=== PATIENT | female | born 1985 | race Caucasian/White ===

== ENCOUNTER 2016-07-31 08:49 | Emergency (ER) | payer OTHER ==
--- NOTE | 2016-07-31 09:36 | ER Document Report ---
ED General - General Chief Complaint: Sore Throat Stated Complaint: THROAT PAIN Time seen by provider: 09:31 Mode of Arrival: Ambulatory Information source: Patient Notes: This is a 30-year-old female with a history of hypertension who presents to the emergency room with a sore throat for 3 days. Patient denies fever, chills. She does have pain when she swallows. She is able to swallow. No drooling. No change in her voice. Past medical history: Hypertension Medicines: Metoprolol, control implant Allergies: Penicillin (hives) Social: Positive for cigarettes (5 cigarettes a day). TRAVEL OUTSIDE OF THE [place] IN LAST 30 DAYS: No - HPI Onset: Last week Onset/Duration: Gradual Quality of pain: Dull Severity: Moderate Pain Level: 3 Associated symptoms: denies: Chills, Fever Exacerbated by: Denies Relieved by: Denies Similar symptoms previously: No Recently seen / treated by doctor: No - Related Data Allergies/Adverse Reactions: latex [Latex] Allergy (Mild, Verified 07/31/16 08:57) ITCHY RASH ON HANDS FROM GLOVES aloe vera [From Aloe Vera with Vitamin E] Allergy (Verified 07/31/16 08:57) Hives Penicillins Allergy (Verified 07/31/16 08:57) Hives Vitamin E [From Aloe Vera with Vitamin E] Allergy (Verified 07/31/16 08:57) Hives Past Medical History - General Information source: Patient - Social History Smoking Status: Current Every Day Smoker Cigarette use (# per day): Yes Chew tobacco use (# tins/day): No Frequency of alcohol use: None Drug Abuse: None Lives with: Family Family History: Reviewed & Not Pertinent Patient has suicidal ideation: No Patient has homicidal ideation: No - Past Medical History Cardiac Medical History: Denies: Hx Coronary Artery Disease, Hx Heart Attack, Hx Hypertension Pulmonary Medical History: Denies: Hx Asthma, Hx Bronchitis, Hx COPD, Hx Pneumonia Neurological Medical History: Denies: Hx Cerebrovascular Accident, Hx Seizures Renal/ Medical History: Denies: Hx Peritoneal Dialysis GI Medical History: Denies: Hx Hepatitis, Hx Hiatal Hernia, Hx Ulcer Musculoskeltal Medical History: Denies Hx Arthritis Infectious Medical History: Denies: Hx Hepatitis Surgical Hx: Negative Past Surgical History: Denies: Hx Hysterectomy, Hx Mastectomy, Hx Open Heart Surgery, Hx Pacemaker - Immunizations Hx Diphtheria, Pertussis, Tetanus Vaccination: No Review of Systems - Review of Systems Constitutional: denies: Chills, Fever EENT: See HPI Cardiovascular: No symptoms reported Respiratory: No symptoms reported Gastrointestinal: No symptoms reported Genitourinary: No symptoms reported Female Genitourinary: No symptoms reported Musculoskeletal: No symptoms reported Skin: No symptoms reported Hematologic/Lymphatic: No symptoms reported Neurological/Psychological: No symptoms reported Physical Exam - Vital signs Vitals: Temp Pulse Resp BP Pulse Ox 98.4 F 53 L 16 152/111 H 96 07/31/16 08:54 07/31/16 08:54 07/31/16 08:54 07/31/16 08:54 07/31/16 08:54 Notes: Physical exam: GENERAL: HEAD: Atraumatic, normocephalic. EYES: Pupils equal round and reactive to light, extraocular movements intact, sclera anicteric, conjunctiva are normal. ENT: TMs normal, nares patent, oropharynx reveals bilateral erythematous tonsils with exudates. There is no uvular deviation. There is no peritonsillar fullness. There is no stridor or change in voice. There is no drooling. NECK: Normal range of motion, supple without any tenderness or swelling in the submandibular or submental spaces. LUNGS: Breath sounds clear to auscultation bilaterally and equal. No wheezes rales or rhonchi. HEART: Regular rate and rhythm without murmurs, rubs or gallops. ABDOMEN: Soft, normoactive bowel sounds. No tenderness to palpation. No guarding, no rebound. No masses appreciated. EXTREMITIES: Normal range of motion, no pitting or edema. No clubbing or cyanosis. NEUROLOGICAL: Cranial nerves II through XII grossly intact. Normal speech, normal gait. PSYCH: Normal mood, normal affect. SKIN: Warm, Dry, normal turgor, no rashes or lesions noted. Course - Re-evaluation Re-evalutation: 07/31/16 09:34 The patient is hypertensive today. She did not take her metoprolol. On review of her vital signs, her blood pressure is 152/111 and her pulse is 53. Her blood pressure is metoprolol. I've discussed with her that she may require a second agent or change to a different medicine. Her heart rate is rather slow, and yet her blood pressure is rather high. Increasing the metoprolol is limited based upon the heart rate of 53. Additionally, I've discussed with her why she should not smoke. She is on control implant and I discussed that the risks or DVT, PE and that a PE could be life-threatening. She understands this risk and said she would try and stop. As far as her primary care doctor, it had previously been Dr. Dave his left town and she does not have a primary care doctor at this time. I will refer her to someone new. - Vital Signs Vital signs: Temp Pulse Resp BP Pulse Ox 97.7 F 54 L 16 146/100 H 98 07/31/16 10:31 07/31/16 10:31 07/31/16 10:31 07/31/16 10:31 07/31/16 10:31 Discharge - Discharge Clinical Impression: tonsillitis, hypertension Condition: Stable Disposition: HOME, SELF-CARE Instructions: Strep Throat ([facility]) Additional Instructions: Recommendations: You can take Advil for pain. Take the clindamycin antibiotic as prescribed. As we discussed, I would like you to attempt to stop smoking completely. Return to the emergency room for any worsening sore throat, difficulty swallowing or concerns he getting worse. Prescriptions: Clindamycin HCl [Cleocin 300 mg Capsule] 300 mg PO Q6 #28 capsule Forms: Return to Work
[2016-07-31 10:34] VITALS: BP 146/100
== END 2016-07-31 10:38 | disposition home or self-care (01) ==
LOC: ER 08:49
DX: J03.90 Acute tonsillitis, unspecified (principal); I10 Essential (primary) hypertension; J02.9 Acute pharyngitis, unspecified; F17.210 Nicotine dependence, cigarettes, uncomplicated
CPT/HCPCS: 87880; 99283

== ENCOUNTER 2018-10-25 14:36 | Day surgery (SDC) | payer OTHER ==
[~2018-10-25 14:36] MED LIST: BUPIVACAINE HCL 0.25 % INJ/PF (2.5 MG/1 ML) 30 ML VIAL ONE; DEXAMETHASONE SOD PHOSPHATE INJ 4 MG/1 ML VIAL ONE; FENTANYL CITRATE INJ/PF 100 MCG/2 ML AMPUL ONE; HYDROMORPHONE HCL INJ/PF 2 MG/ML AMPULE ONE; METRONIDAZOLE 500 MG/NS RTU 500 MG/100 ML RTUPB IV ONE; METRONIDAZOLE 500 MG/NS RTU 500 MG/100 ML RTUPB IV PRN; MIDAZOLAM 2 MG/2 ML INJ ONE; ONDANSETRON HCL INJ/PF 4 MG/2 ML SDV ONE; PROPOFOL INJ 200 MG/20 ML VIAL IV ONE; ROCURONIUM BROMIDE INJ 50 MG/5 ML VIAL IV ONE; SUCCINYLCHOLINE CHLORIDE INJ 200 MG/10 ML VIAL ONE
[2018-10-25 15:28] LABS: ABSOLUTE BASOPHILS # (AUTO) 0.1 10^3/uL (0.0-0.2); ABSOLUTE EOSINOPHILS # (AUTO) 0.4 10^3/uL (0.0-0.6); ABSOLUTE LYMPHOCYTES (AUTO) 2.2 10^3/uL (0.5-4.7); ABSOLUTE MONOCYTES (AUTO) 0.8 10^3/uL (0.1-1.4); ABSOLUTE NEUT (AUTO) 11.3 10^3/uL (1.7-8.2); BASOPHILS % (AUTO) 0.8 % (0-2); EOSINOPHILS % (AUTO) 2.9 % (0-6); HEMATOCRIT 44.4 % (36.0-47.0); HEMOGLOBIN 15.5 g/dL (12.0-15.5); LYMPHOCYTES % (AUTO) 14.8 % (13-45); MEAN CORPUSCULAR HEMOGLOBIN 31.6 pg (27.0-33.4); MEAN CORPUSCULAR HGB CONC 34.8 g/dL (32.0-36.0); MEAN CORPUSCULAR VOLUME 91 fl (80-97); MONOCYTES % (AUTO) 5.3 % (3-13); PLATELET COUNT 347 10^3/uL (150-450); RED BLOOD COUNT 4.89 10^6/uL (3.72-5.28); RED CELL DISTRIBUTION WIDTH 12.7 % (11.5-14.0); SEGMENTED NEUTROPHILS % (AUTO) 76.2 % (42-78); TOTAL CELLS COUNTED % (AUTO) 100 %; WHITE BLOOD COUNT 14.8 10^3/uL (4.0-10.5)
[2018-10-25] MEDS ORDERED: MORPHINE SULFATE 10 MG/ML INJ IV PRN (16:08)
[2018-10-25] MEDS ORDERED: MEPERIDINE HCL/PF INJ 25 MG/1 ML DISP.SYRIN IV PRN (16:08)
[2018-10-25] MEDS ORDERED: PROMETHAZINE HCL INJ 25 MG/1 ML VIAL IV PRN (16:08)
[2018-10-25] MEDS ORDERED: OXYCODONE-ACETAMINOPHEN 5-325 MG TABLET PO PRN ×3 (16:08→16:26)
[2018-10-25] MEDS ORDERED: FENTANYL CITRATE INJ/PF 100 MCG/2 ML AMPUL IV PRN ×3 (16:08)
[2018-10-25] MEDS ORDERED: DIPHENHYDRAMINE HCL 50 MG/ML VIAL IV PRN (16:08)
--- NOTE | 2018-10-25 16:26 | Discharge Summary ---
Discharge Summary (SDC) - Discharge Final Diagnosis: perirectal abscess Date of Surgery: 10/25/18 Discharge Date: 10/25/18 Condition: Good Treatment or Instructions: [facility] [address], [place] [address] Pilonidal Cyst Excision Discharge Instructions 1. General Information: a. DO NOT DRIVE a car or operate dangerous machinery for 4-7 days or while taking narcotic prescription pain pills. b. DO NOT consume alcohol, tranquilizers, sleeping medications or any non- prescribed medications for 24 hours unless approved by your doctor or as long as taking narcotic prescription medications. c. DO NOT make important decisions or sign any important papers for the first 24 hours after surgery. d. Have a responsible person with you tonight. 2. Activity Restrictions: 2 weeks. a. Avoid heavy lifting or straining until you feel more comfortable. b. It is fine to go for walks, up and down steps, ride in a car. c. Avoid prolonged direct contact or pressure to the area. 3. Treatment: a. You may shower the next day. It is usually best to remove the outer dressing before the shower. Leave packing in place until it falls out on its own. Wash any soap out of the wound daily. After you shower, dry the area completely and re cover with gauze and tape. After the packing falls out, you may shower like normal and apply a new dressing daily. c. If no packing was placed, shower, like normal and dry. Cover with a dry gauze and tape. 4. Medications: a. You may take the narcotic prescription tablets for pain one tablet every 6 hours. (_Percocet__). b. Stop the narcotic when able since you cannot take it and drive and they cause constipation. d. Stool softeners are encouraged to hel you for 2-4 weeks to maintain a soft stool and avoid more painful bowel movements due to pain medication. Colace is often used. 5. Diet: a. Begin with clear liquids and if you do well you may then advance to normal foods low in fat and protein at first. Smaller portion size may be hearn the first night. 6. Notify Physician If: a. Worsening of pain not improved with pain medication b. Fever above 101 c. Persistent bleeding or swelling at operative site d. Unable to urinate and uncomfortable bladder 6-8 hours after surgery 7..Follow Up Care: a. Schedule a follow up appointment with your doctor for 2 weeks. In the event of any postoperative problems or questions or you may call the office during business hours or the On-Call physician evenings and weekends at [facility]. [facility] I understand the instructions for my postoperative care as described above and a copy has been given to me. Patient/Significant Other Witness Date Prescriptions: Oxycodone HCl/Acetaminophen [Percocet 5-325 mg Tablet] 1 tab PO ASDIR PRN #20 tab PRN Reason: Referrals: ROMELIA GRAHAM MD [ACTIVE STAFF] - 11/03/18 11:00 am Discharge Diet: As Tolerated Discharge Activity: Activity As Tolerated, Walk Frequently Report the Following to Your Physician Immediately: Increase in Pain, Fever over 101 Degrees, Unusual Bleeding, Redness, Swelling, Warmth, Drainage-Foul Smelling
--- NOTE | 2018-10-25 16:31 | Operative Report ---
Operative Report DATE OF SURGERY: 10/25/18 PREOPERATIVE DIAGNOSIS: Left anterior lateral perianal abscess POSTOPERATIVE DIAGNOSIS: Same OPERATION: 1. Examination under anesthesia with anoscopy. 2. Drainage, debridement of left anterior lateral perianal abscess SURGEON: ROMELIA GRAHAM 1ST NURSE TECH: NITHYA BARNES ANESTHESIA: GA TISSUE REMOVED OR ALTERED: Pus and necrotic tissue perianal abscess COMPLICATIONS: None ESTIMATED BLOOD LOSS: Minimal INTRAOPERATIVE FINDINGS: See below PROCEDURE: The patient was taken to from the preop holding her to the main operating room where general anesthesia was induced. She was then placed in the prone, jackknife position buttocks spread widely, taped, and the buttocks prepped and draped in sterile fashion Surgical plan and surgical timeout were conducted. The left anterior lateral perianal abscess was spontaneously draining. I made a radial incision approximately 2 cm in length and evacuated approximately 250 cc of purulent pus which was cultured. We irrigated the cavity and broke up loculations and improve the nonviable tissue with pickups, tenotomy scissors. 1 g of tissue was removed mostly infected subcutaneous tissue. There was some thickened skin in the left lateral position, and this was probed from the inside of the debridement cavity and there was no further pus. The anal canal was dilated up to accept 2 adult fingers. The bullet anoscope was inserted into the anal canal careful inspection of the anal verge, anal canal and dentate line performed. There was no evidence of internal opening from the fistula. I probed the abscess cavity and could not get a communication with the anal canal. The balloon scope was removed and the exam under anesthesia complete. The abscess cavity was irrigated several more times. Small bleeders right at the border with the external anal sphincter were cauterized. The wound was packed with a large piece of Surgicel. The surrounding subcutaneous tissue was anesthetized, 20 cc. Patient tolerated the procedure well, placed in the supine position, extubated, and taken recovery in stable condition. The physician hospital nursing assistant, Ms. Garcia, provided assistance during this case by: Assisting with retracting tissue, instillation of local anesthesia and closure of skin incisions.
[2018-10-25] MEDS ORDERED: OXYCODONE-ACETAMINOPHEN 5-325 MG TABLET ONE (17:12)
[2018-10-25 18:11] VITALS: BP 145/101
== END 2018-10-25 18:10 | disposition home or self-care (01) ==
LOC: OROUT 14:36
PROVIDERS: ATTEND Surgery
DX: K61.0 Anal abscess (principal); I10 Essential (primary) hypertension; E78.00 Pure hypercholesterolemia, unspecified; E66.9 Obesity, unspecified; Z68.41 Body mass index [BMI] 40.0-44.9, adult; Z88.0 Allergy status to penicillin; Z91.040 Latex allergy status; Z87.891 Personal history of nicotine dependence; Z79.899 Other long term (current) drug therapy
CPT/HCPCS: 36415; 87070; 87205; 85025; 81025; 87075; 87077; 87186; 00902; 46050; J2250; J3490 ×2; J1100; J1170; J0330; J2405; J2704; 902; J3010